=== PATIENT | male | born 1965 | race Two or more races ===

== ENCOUNTER 2024-12-28 20:32 | Emergency (ER) | payer SELFPAY ==
[2024-12-28 20:34] VITALS: BMI 28.7
[2024-12-28 22:27] VITALS: BP 147/87; PULSE 69; RESP 18; TEMP 37; O2SAT 99
[2024-12-28 23:21] LABS: Base Excess, Venous 1 (-3-3); Basophils # (Auto) 0.1 Thou/mm3 (0.0-0.2); Basophils % (Auto) 1 % (0-2.5); Eosinophils # (Auto) 0.2 Thou/mm3 (0.0-0.5); Eosinophils % (Auto) 2 % (0-10); Hematocrit 40.1 % (41.0-53.0); Hemoglobin 14.2 g/dL (13.5-16.0); Immature Granulocytes % (Auto) 0 % (0-0); Immature Granulocytes Auto 0.04 Thou/mm3 (0.00-0.00); Lymphocytes # (Auto) 2.3 Thou/mm3 (1.0-4.8); Lymphocytes % (Auto) 25 % (10-50); Mean Corpuscular HGB Conc 35.4 g/dl (31.0-37.0); Mean Corpuscular Hemoglobin 30.7 pg (25.0-35.0); Mean Corpuscular Volume 87 fL (80-100); Monocytes # (Auto) 0.7 Thou/mm3 (0.0-0.8); Monocytes % (Auto) 8 % (0-12); Neutrophils # (Auto) 5.9 Thou/mm3 (1.8-7.7); Neutrophils % (Auto) 64 % (37-80); Nucleated Red Blood Cell % 0 /100 WBC (0); O2 Saturation, Venous 47 % (96-97); PCO2, Venous 43 mmHg (36-56); PO2, Venous 25 mmHg (15-58); Platelet Count 301 Thou/mm3 (140-440); RDW Standard Deviation 39.1 fL (35.1-43.9); Red Blood Count 4.63 Miln/mm3 (4.50-5.90); White Blood Count 9.2 Thou/mm3 (3.8-10.6)
[2024-12-28 23:26] LABS: Beta Hydroxybutyrate 0.4 mmol/L (<0.6)
[2024-12-28 23:34] LABS: Glucose Estimated Average 269 mg/dL (80-131)
[2024-12-28 23:39] LABS: Carbon Dioxide 26.1 mMol/L (20.0-31.0); Chloride 104 mMol/L (98-107); Potassium 4.1 mMol/L (3.4-5.1); Sodium 140 mMol/L (136-145)
[2024-12-28 23:40] LABS: Alanine Aminotransferase 19 U/L (10-49); Albumin, Serum 4.8 gm/dL (3.5-5.0); Alkaline Phosphatase 80 U/L (46-116); Anion Gap 10 (7-16); Aspartate Amino Transferase 19 U/L (0-34); BUN/Creatinine Ratio 18 Ratio (12-20); Bilirubin,Total 0.8 mg/dL (0.3-1.2); Blood Urea Nitrogen 21 mg/dL (9-23); Calcium 9.6 mg/dL (8.3-10.6); Calcium (Corrected) 9.6 mg/dL (8.5-10.1); Creatinine (Component) 1.2 mg/dL (0.6-1.3); Estimated Creatinine Clearance 76.9 mL/min (>60); Globulin 2.4 gm/dL (2.3-3.5); Glucose 221 mg/dL (74-106); Osmolality,Calculated 289 (275-295); Total Protein 7.2 gm/dL (5.7-8.2); eGFR > 60 See Note
[2024-12-28 23:56] VITALS: RESP 16
[2024-12-29 00:51] LABS: Collection Type, Urine Clean Catch; Squamous Epithelial Cell,Urine 0 /hpf (0-5)
[2024-12-29 01:06] LABS: Amorphous Crystals,Urine Present (Absent); Bilirubin,Urine Negative (Negative); Blood,Urine Negative (Negative); Clarity,Urine Turbid (Clear/Hazy); Color,Urine Yellow (Lt Yel-Yel); Culture Indicated,Urine Not Indicated; Glucose, Urine 4+ (Negative); Ketones,Urine Trace (Negative); Leukocyte Esterase,Urine Negative (Negative); Nitrite,Urine Negative (Negative); PH,Urine 5.5 (5.0-7.0); Protein,Urine 1+ (Neg - Trace); RBC,Urine 8 /hpf (0-3); Specific Gravity,Urine 1.036 (1.001-1.035); Urobilinogen,Urine Negative mg/dL (0.0-1.0); WBC,Urine 3 /hpf (0-5)
--- NOTE | 2024-12-29 05:23 | PD.EDRECHK ---
ED Recheck Abnl Lab Rx-RME/HPI General Chief Complaint: Nausea/Vomiting/Diarrhea Stated Complaint: HIGH BG, VOMITING, UNABLE TO EAT Time Seen by Provider: 12/28/24 22:52 Arrival date/time: 12/28/24 20:32 59M with history of DM presents to ED with several months of high BS and intermittent N/V and reduced appetite. Patient does not go to PCP often. Limitations: no limitations Related Data Home Medications ?Medication ?Instructions ?Recorded ?Confirmed metformin 1,000 mg tablet 1,000 mg PO BID 01/06/20 03/19/21 fenofibrate 160 mg tablet 160 mg PO QDAY 03/19/21 03/19/21 finasteride 5 mg tablet 5 mg PO QDAY 03/19/21 03/19/21 metoprolol succinate 50 mg 50 mg PO QDAY 03/19/21 03/19/21 tablet,extended release 24 hr semaglutide 3 mg tablet (Rybelsus) 3 mg PO QDAY 03/19/21 03/19/21 sildenafil 50 mg tablet 50 mg PO QDAY 03/19/21 03/19/21 tamsulosin 0.4 mg capsule 0.4 mg PO QDAY 03/19/21 03/19/21 Previous Rx's ?Medication ?Instructions ?Recorded insulin glargine 100 unit/mL 35 unit (0.35 mL) subcut QDAY #10 03/21/21 subcutaneous solution (Lantus mL U-100 Insulin) Allergies Allergy/AdvReac Type Severity Reaction Status Date / Time No Known Allergies Allergy Verified 12/28/24 20:34 Review of Systems Review of Systems Systems Reviewed: All systems reviewed, normal except as documented Constitutional Constitutional: Reports system reviewed and no additional complaints, except as documented, Denies fever(s) and Denies headache(s) ENT Ears, Nose, Mouth, and Throat: Denies disequilibrium and Denies headache(s) Cardiovascular Cardiovascular: Reports system reviewed and no additional complaints, except as documented, Denies chest pain and Denies dyspnea Respiratory Respiratory: Reports system reviewed and no additional complaints, except as documented, Denies cough and Denies dyspnea Gastrointestinal Gastrointestinal: Reports system reviewed and no additional complaints, except as documented, Reports as per HPI, Denies abdominal pain, Reports nausea and Reports vomiting Neurologic Neurologic: Reports system reviewed and no additional complaints, except as documented, Denies confusion, Denies disequilibrium and Denies headache(s) Psychiatric Psychiatric: Denies confusion Past Medical History Past Medical History NEUROLOGIC: Negative Neurological Disorders CARDIAC: Positive Hypercholesterolemia and Hypertension; Negative Cardiac Disorders or Congestive Heart Failure RESPIRATORY: Negative Chronic Obstructive Pulmonary Disease (COPD) GASTROINTESTINAL: Negative Gastrointestinal Disorders, Hepatitis or Colorectal Cancer GENITOURINARY: Positive Genitourinary Disorders and Benign Prostatic Hyperplasia; Negative Renal Disease or Prostate Cancer REPRODUCTIVE: Negative Breast Cancer, Fibroids or Testicular Cancer MUSCULOSKELETAL: Negative Musculoskeletal Disorders or Bone Cancer ENDOCRINE: Positive Endocrine Disorders and Diabetes Mellitus Type 2; Negative Diabetes Mellitus Type 1 HEMATOLOGIC: Negative Blood Disorders OTHER HISTORY: Negative Hospitalization, Autoimmune Disease, Down Syndrome, Developmental Delay, Shingles, Falls, Blood Transfusions, Blood Transfusion Reaction, Anesthesia Reactions, Organ Transplant, Chemotherapy, Radiation Therapy, Hyperbaric Therapy, MRSA, VRSA, Vancomycin-Resistant Enterococci, Human Immunodeficiency Virus (HIV), Chicken Pox, Measles, Mumps, Rubella (Tamazight Measles), Pertussis, Clostridium Difficile, Cancer, Breast Cancer, Cervical Cancer, Colorectal Cancer, Lung Cancer, Ovarian Cancer, Prostate Cancer or Testicular Cancer Family History FAMILY HISTORY: Negative Family Psychiatric Problems, Family Cardiac Disorders, Family Gastrointestinal Problems, Family Cancer, Family Surgery or Family Anesthesia Reaction Surgical History SURGICAL: Negative Cardiac Surgery, Endocrine Surgery, Thyroidectomy, Ear Surgery, Abdominal Surgery, Nephrectomy, Joint Replacement, Neurologic Surgery, Brain Shunt, Mastectomy, Lumpectomy, Hysterectomy, Vasectomy or Organ Transplant Social History SMOKING STATUS: Never smoker SECOND HAND EXPOSURE: No ED Exam General Limitations: Present no limitations General appearance: Present alert and in no apparent distress Head Head exam: Present atraumatic Eye Eye exam: Present normal appearance, PERRL and EOMI ENT ENT exam: Present normal exam, normal oropharynx and mucous membranes moist Neck Neck exam: Present normal inspection, full ROM and trachea midline Chest Chest inspection: Present normal inspection and symmetric chest wall rise Respiratory Respiratory exam: Present normal lung sounds bilaterally Cardiovascular Cardiovascular exam: Present regular rate, normal rhythm and normal heart sounds Abdominal Exam Abdominal exam: Present soft and normal bowel sounds Extremities Exam Extremities exam: Present normal inspection and full ROM Back Exam Back exam: Present normal inspection and full ROM Neurological Exam Neurological exam: Present alert, oriented X3 and CN II-XII intact Psychiatric Psychiatric exam: Present normal affect and normal mood Skin Skin exam: Present warm, dry, intact and normal color Course Quality Measures none Orders Category Date Time Status Blood glucose [Bedside Blood Glucose] NOW Care 12/28/24 22:52 Completed A1C [Glycohemoglobin w (eAG)] Stat Lab 12/28/24 23:00 Completed Beta Hydroxybutyrate Stat Lab 12/28/24 23:00 Completed CBC Stat Lab 12/28/24 23:00 Completed CMP [Comprehensive Metabolic Panel] Stat Lab 12/28/24 23:00 Completed Urinalysis, C/S if Indicated Stat Lab 12/28/24 00:33 Completed VBG [Venous Blood Gas] Stat Lab 12/28/24 23:00 Completed Vital Signs Vital signs: Vital Signs Temperature 98.6 F 12/28/24 22:27 Pulse Rate 69 12/28/24 22:27 Respiratory Rate 18 12/28/24 22:27 Blood Pressure 147/87 H 12/28/24 22:27 Pulse Oximetry (%) 99 12/28/24 22:27 Oxygen Delivery Method Room Air 12/28/24 22:27 O2 at 99% on RA and WNLs Recheck / Abnormal Lab / Rx MDM Narrative MDM Narrative:: 59M with history of DM presents to ED with several months of high BS and intermittent N/V and reduced appetite. Patient does not go to PCP often. Physical exam reveals well-appearing male. Patient is afebrile, calm, and alert. No leukocytosis. CMP unremarkable except for 200s BS, but no anion gape. UA lots of glucose. Beta hydroxy and VBG normal. A1C 11%. It Director given. Patient data External records reviewed:: [facility] previous records Clinical information provided by:: patient Social determinants that could affect healthcare access:: none Patient has the following chronic illnesses:: DM How is presenting disease/condition affected by chronic disease/condition?: caused by Evaluation data The following diagnostics were reviewed and interpreted by me:: lab results Lab and/or radiology exams considered but not ordered:: ordered Interpretation Summary: above Medications / Prescriptions Medications or Prescriptions considered but not ordered:: not ordered Medication administrations:: n/a Consultations Consultation(s) initiated? (list below): No Diagnosis Recheck Differential Diagnosis: encounter for medication refill, encounter for wound recheck, encounter for recheck of burn, encounter for removal of sutures, warfarin-induced coagulopathy and other (hyperglycemia) Most likely diagnosis given after review of the tests above:: hyperglycemia Admission Indicated Admission indicated?: not indicated Admission Request Was there a request for admission?: No Disposition Plan Disposition Plan: Discharge Discharge Attestation Discharge Attestation: The patient and all family members were given an opportunity to ask questions and understood the discharge instructions. Discharge instructions specifically effects, indications for sooner follow up or return to the emergency department, and the expected course of current diagnosis. Patient condition: Stable Discharge Plan Plan Patient Disposition: HOME (Self Care) Discharge Disposition comment: Stable Prescriptions/Referrals Prescriptions/Med Rec: No Action metformin 1,000 mg Tablet 1,000 mg PO BID sildenafil 50 mg Tablet 50 mg PO QDAY metoprolol succinate 50 mg Tablet Extended Release 24 Hr 50 mg PO QDAY tamsulosin 0.4 mg Capsule 0.4 mg PO QDAY finasteride 5 mg Tablet 5 mg PO QDAY fenofibrate 160 mg Tablet 160 mg PO QDAY Rybelsus 3 mg Tablet 3 mg PO QDAY Lantus U-100 Insulin 100 unit/mL solution 35 unit subcut QDAY Qty: 10 0RF Problem List Clinical Impression: Hyperglycemia Patient/Caregiver Discharge Instructions Education Materials: ED Diabetes with High Blood Sugar Additional Instructions: Please follow-up with PCP within 24-48 hours and return immediately if symptoms worsen. See PCP for glycemic control. A1C 11.0%. Print Language: Lithuanian Stand Alone Forms: Patient Portal Info Letter LEAH/LALITHA Supervising Physician MELI Supervising Physician: Dr. Fitzgerald
== END 2024-12-28 23:56 | disposition home or self-care (01) ==
LOC: SERX 12-29 00:58
PROVIDERS: Physician Assistant; Emergency Provider Emergency Medicine
DX: E11.65 Type 2 diabetes mellitus with hyperglycemia (principal); Z79.84 Long term (current) use of oral hypoglycemic drugs; Z79.4 Long term (current) use of insulin
CPT/HCPCS: 36415; 80053; 81001; 82010; 82803; 83036; 85025; 99283